=== PATIENT | male | born 1935 | race Two or more races ===

== ENCOUNTER 2016-10-12 14:07 | Emergency (ER) | payer MEDICARE ==
[2016-10-12 14:31] VITALS: BP 139/71
--- NOTE | 2016-10-12 16:06 | UC ---
Laceration HPI - HPI Summary HPI Summary: TIP OF RIGHT THUMB CUT ONE HOUR AGO WHILE USING A CUISINART. SMALL CUT BUT HAD BEEN UNABLE TO CONTROL BLEEDING. ON NO BLOOD THINNERS. CURENTLY NOT TAKING ASPIRIN - History Of Current Complaint Chief Complaint: UCLaceration Stated Complaint: THUMB LACERATION Time Seen by Provider: 10/12/16 14:11 Hx Obtained From: Patient Laceration Location: Finger - RIGHT THUMB Mechanism Of Injury: Sharp Trauma Onset/Duration: Sudden Onset, Lasting Hours Pain Intensity: 0 Pain Scale Used: 0-10 Numeric Related History: Dominant Hand Right - Allergies/Home Medications Allergies/Adverse Reactions: Allergies Allergy/AdvReac Type Severity Reaction Status Date / Time Hydrochlorothiazide Allergy Unknown Verified 10/07/16 11:39 Reaction Details Sulfamethoxazole Allergy See Comment Verified 10/07/16 11:39 w/Trimethoprim [From Bactrim] Home Medications: Home Medications Aspirin [Aspirin Adult Low Dose] 10/12/16 [History] PMH/Surg Hx/FS Hx/Imm Hx Previously Healthy: Yes Endocrine History Of: Denies: Diabetes, Thyroid Disease Cardiovascular History Of: Reports: Cardiac Disorders - high cholesterol, Hypertension - on medication Denies: Pacemaker/ICD, Congestive Heart Failure Respiratory History Of: Denies: COPD, Asthma GI/ History Of: Denies: Ulcer, Renal Disease - Surgical History Surgical History: Yes Surgery Procedure, Year, and Place: TEMPORAL ARTERY BIOPSY 06/21/[address] MURPHY. ELLIOT 05/18/02. ANKLE SURGERY 1984. 07/03/16 TUMOR REMOVED ([facility]) - Family History Known Family History: Positive: Cardiac Disease, Diabetes - Social History Lives: Alone Alcohol Use: Occasionally Substance Use Type: None Smoking Status (MU): Never Smoked Tobacco - Immunization History Most Recent Influenza Vaccination: 2014 Most Recent Tetanus Shot: unknown Most Recent Pneumonia Vaccination: unknown Review of Systems Constitutional: Negative Skin: Other - LACERATION RIGHT THUMB Eyes: Negative ENT: Negative Respiratory: Negative Cardiovascular: Negative Gastrointestinal: Negative Genitourinary: Negative Motor: Negative Neurovascular: Negative Musculoskeletal: Negative Neurological: Negative Psychological: Negative All Other Systems Reviewed And Are Negative: Yes Physical Exam Triage Information Reviewed: Yes Appearance: Well-Appearing, No Pain Distress, Well-Nourished Vital Signs: Initial Vital Signs Temp 97.8 F 10/12/16 14:23 Pulse 62 10/12/16 14:23 Resp 16 10/12/16 14:23 BP 139/71 10/12/16 14:23 Pulse Ox 98 10/12/16 14:23 Vital Signs Reviewed: Yes Eye Exam: Normal ENT Exam: Normal ENT: Positive: Normal ENT inspection, Hearing grossly normal, Pharynx normal, TMs normal Dental Exam: Normal Neck exam: Normal Neck: Positive: Supple, Nontender, No Lymphadenopathy Respiratory Exam: Normal Respiratory: Positive: Chest non-tender, Lungs clear, Normal breath sounds, No respiratory distress, No accessory muscle use Cardiovascular Exam: Normal Cardiovascular: Positive: RRR, No Murmur, Pulses Normal Abdominal Exam: Normal Abdomen Description: Positive: Nontender, No Organomegaly Musculoskeletal Exam: Normal Musculoskeletal: Positive: Strength Intact, ROM Intact Neurological Exam: Normal Neurological: Positive: Alert, Muscle Tone Normal Psychological Exam: Normal Psychological: Positive: Normal Response To Family Skin: Positive: Other - RIGHT THUMB LACERATION 0.8CM X 1MM X 3MM Laceration Repair - Laceration Repair 1 Description: Linear - RIGHT THUMB Laceration Size After Repair: Length (cm) - 0.8, Width (mm) - 1, Depth (mm) - 3 Modified For Repair: No Cleansing Completed Via Routine Prep: Yes Irrigation With Pressure Irrigation Device: Yes Closure Material: Skin Adhesive, SteriStrips Laceration Course/Dx - Differential Dx - Laceration/Wound Differental Diagnoses: Fracture, Joint Infection Provider Diagnoses: RIGHT THUMB LACERATION 0.8CM X 1MM X 3MM Discharge - Discharge Plan Condition: Stable Disposition: HOME Patient Education Materials: Laceration (ED), Skin Adhesive Care (ED), Steristrips (ED) Referrals: Chuy Nelson MD [Primary Care Provider] -
== END 2016-10-12 15:04 | disposition home or self-care (01) ==
LOC: UCEAST 14:07
DX: S61.011A Laceration without foreign body of right thumb without damage to nail, initial encounter (principal); W29.0XXA Contact with powered kitchen appliance, initial encounter; Y93.9 Activity, unspecified; Y92.9 Unspecified place or not applicable; Z88.2 Allergy status to sulfonamides; Z88.8 Allergy status to other drugs, medicaments and biological substances; I10 Essential (primary) hypertension
CPT/HCPCS: 99212; G0463

== ENCOUNTER → 2016-10-14 09:49 | Day surgery (SDC) | payer MEDICARE ==
[~2016-10-14 09:49] MED LIST: Buffered Lidocaine 1% SYR 3ML* 3 ML/SYR SYRINGE INTRADERM ONE; Lidocaine 2% PF * 5 ML VIAL ONE; Lidocaine 4% TOPICAL* 50 ML TOP.SOLN ONE; Ondansetron INJ* 2 MG/ML VIAL IV PRN; Oxymetazoline 0.05% NASAL SPR* 15 ML BTL ONE; Propofol* 10 MG/ML 20 ML BTL IV PUSH ONE; Sodium Citrate/Citric Acid* 15 ML UDC ONE; Sodium Citrate/Citric Acid* 15 ML UDC PO ONE; fentaNYL* 50 MCG/ML 2 ML VIAL (100 MCG VIAL) IV PRN; fentaNYL* 50 MCG/ML 2 ML VIAL (100 MCG VIAL) ONE
[2016-10-14 13:52] VITALS: BP 153/78
--- NOTE | 2016-10-15 19:40 | OP ---
DATE OF OPERATION: 10/14/16 [facility] DATE OF : 39 SURGEON: Alejandro Campbell MD SENIOR PATIENT ACCOUNT REPRESENTATIVE: None. ANESTHESIOLOGIST: Roosevelt Holt DO ANESTHESIA: General. PRE-OP DIAGNOSIS: Nasolacrimal duct obstruction, right side. POST-OP DIAGNOSIS: Nasolacrimal duct obstruction, right side. OPERATIVE PROCEDURE: Probe and irrigation of right nasolacrimal duct with placement of Hoover tube. COMPLICATIONS: None. BLOOD LOSS: Less than 5 cc. DESCRIPTION OF PROCEDURE: The patient was brought to the operating room and received general anesthesia with an LMA with no complications. Attention was directed to the right eye where the superior and inferior puncta were inspected. The superior puncta was found to be quite stenotic but was able to be opened with a punctal dilator. The inferior puncta was less stenotic and also was dilated with a punctal dilator. A #1-0 Luz's probe was passed through the superior puncta into the nose and removed. It was then passed through the inferior puncta into the nose and removed. A Hoover tube was placed in the superior puncta and the olive tip metal end was retrieved under the inferior turbinate. A nasal speculum was used to achieve good visualization and a freer elevator was used to lift the inferior turbinate adequately. The other end of the Hoover tube was placed through the inferior puncta and in similar fashion the metal olive tip was retrieved. Both metal tips were cut off and the silicone tube was tied securely into the nose. The position of the tube that had spanned from the superior to inferior puncta was appropriate without excess cheese-wiring or laxity. Afrin and 4% lidocaine had been placed on the pledget and put into the nose prior to the surgery. This was removed at the end of surgery. Suction into the nose was performed to remove a small amount of blood. Small amount of Maxitrol ointment was placed in the eye. The patient was awakened uneventfully and taken to the recovery room in stable condition with postoperative instructions and followup appointment given. [id number]/[facility] #: [id number] MTDD
== END | disposition home or self-care (01) ==
LOC: OREAST 09:49
PROVIDERS: ATTEND Ophthalmology
DX: H04.551 Acquired stenosis of right nasolacrimal duct (principal); I10 Essential (primary) hypertension; R91.1 Solitary pulmonary nodule
CPT/HCPCS: A9270-GY; J2704; J3010

== ENCOUNTER → 2017-07-15 12:11 | Day surgery (SDC) | payer MEDICARE ==
[~2017-07-15 12:11] MED LIST changes: +Acetaminophen TAB* 325 MG PO PRN; +Buffered Lidocaine 0.9% SYRIN* 5 ML/SYR SYRINGE INTRADERM ONE; -Buffered Lidocaine 1% SYR 3ML* 3 ML/SYR SYRINGE INTRADERM ONE; +Dexamethasone IV* 4 MG/ML 1 ML (4 MG) ONE; +EPHEDrine (Pressors)* 50 MG/ML VIAL ONE; +HYDROmorphone INJ* 1 MG/ML CARPUJECT SYRINGE IV PRN; -Lidocaine 4% TOPICAL* 50 ML TOP.SOLN ONE; +Midazolam* 1 MG/ML 2 ML VIAL (2 MG) ONE; -Ondansetron INJ* 2 MG/ML VIAL IV PRN; +Ondansetron INJ* 2 MG/ML VIAL ONE; -Oxymetazoline 0.05% NASAL SPR* 15 ML BTL ONE; +PROCHLORPERAZINE INJ 5 MG/ML 2 ML VIAL IV PRN; -Sodium Citrate/Citric Acid* 15 ML UDC ONE; -Sodium Citrate/Citric Acid* 15 ML UDC PO ONE; +Succinylcholine* 20 MG/ML 10 ML VIAL ONE; -fentaNYL* 50 MCG/ML 2 ML VIAL (100 MCG VIAL) IV PRN
[2017-07-15 16:16] VITALS: BP 121/78
--- NOTE | 2017-07-16 06:48 | PRO ---
BRONCHOSCOPY REPORT: DATE OF PROCEDURE: 07/15/17 PROCEDURE PERFORMED: Bronchoscopy with endobronchial ultrasound-guided fine needle aspiration of station 7 and R4 lymph nodes. PREPROCEDURAL DIAGNOSIS: Lymphadenopathy. ANESTHESIA: General anesthesia. ANESTHESIOLOGIST: Dr. Giron, refer to anesthesiologist's note for further details. PROCEDURE IN DETAIL: Informed consent was obtained from the patient prior to the procedure after all the risks and benefits were thoroughly explained. Appropriate time-out was performed and agreed by attending staff. The patient was placed supine on operating room table, Venodyne and Feliz Hugger placed. Flexible Olympus bronchoscope was then inserted through ET tube for airway inspection. All airways appeared to be patent, no endobronchial lesions were noted. No secretions were noted. Flexible bronchoscope was then removed and EBUS bronchoscope was inserted. Station 7 lymph node was accessed with 4 passes. Rapid on-site evaluation revealed adequate lymphatic tissue in all the passes, few atypical cells noted on 2 passes. Bronchoscope was then advanced into R4. Station R4 lymph was accessed with 4 passes. First two passes were bloody, minimal lymphoid tissue was noted. Pass 3 and 4 had good lymphatic tissue, however, no abnormal cells were noted. Rest of the specimen was placed in CytoLyt. Patient was extubated and was seen in Recovery in optimal condition. [id number]/[facility] #: [id number] MTDD
== END | disposition home or self-care (01) ==
LOC: OR 12:11
PROVIDERS: ATTEND Internal Medicine
DX: R59.0 Localized enlarged lymph nodes (principal); C49.A2 Gastrointestinal stromal tumor of stomach; I10 Essential (primary) hypertension; G62.9 Polyneuropathy, unspecified
CPT/HCPCS: 88172; 88173; 88177; 88305; J0330; J1100; J2250; J2405; J2704; J3010

== ENCOUNTER 2018-02-09 14:37 | Emergency (ER) | payer MEDICARE ==
[2018-02-09 14:49] VITALS: BP 151/82
--- NOTE | 2018-02-09 15:02 | ED ---
Upper Extremity Pain - HPI Summary HPI Summary: 82 yr old male with the complaint of left 5th finger pain after closing it in a wheelchair. 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 He states his finger hurts a bit, and that he has some cuts over the PIP knuckle. He states his Tetanus shot is up to date. - History of Current Complaint Chief Complaint: UCUpperExtremity Stated Complaint: LFT PINKY FIGER INJURY Time Seen by Provider: 02/09/18 14:43 - Allergies/Home Medications Allergies/Adverse Reactions: Allergies Allergy/AdvReac Type Severity Reaction Status Date / Time hydrochlorothiazide Allergy Unknown Verified 02/09/18 14:54 Reaction Details sulfamethoxazole AdvReac See Comment Verified 02/09/18 14:54 [From Bactrim] trimethoprim [From Bactrim] AdvReac See Comment Verified 02/09/18 14:54 PMH/Surg Hx/FS Hx/Imm Hx Endocrine/Hematology History: Reports: Hx Anemia - 5 yrs ago, ok now Denies: Hx Diabetes, Hx Thyroid Disease Cardiovascular History: Reports: Hx Hypertension - on medication Denies: Hx Congestive Heart Failure, Hx Pacemaker/ICD, Other Cardiovascular Problems/Disorders Respiratory History: Reports: Other Respiratory Problems/Disorders - pt gets congested at night Denies: Hx Asthma, Hx Chronic Obstructive Pulmonary Disease (COPD) GI History: Reports: Hx Jaundice - 40 yrs ago Denies: Hx Ulcer, Other GI Disorders History: Reports: Other Problems/Disorders - HX OF TURP Denies: Hx Dialysis, Hx Renal Disease Musculoskeletal History: Reports: Hx Back Problems, Hx Bursitis - hip, Other Musculoskeletal History - thin cartilage in right knee; pain in left hip Sensory History: Reports: Hx Contacts or Glasses - glasses Denies: Hx Hearing Aid Opthamlomology History: Reports: Hx Contacts or Glasses - glasses Neurological History: Denies: Other Neuro Impairments/Disorders Psychiatric History: Denies: Hx Panic Disorder - Cancer History Cancer Type, Location and Year: [facility] - Surgical History Surgery Procedure, Year, and Place: TEMPORAL ARTERY BIOPSY 06/21/[address] MURPHY. TURP 05/18/02. ANKLE SURGERY 1984. 07/03/16 TUMOR REMOVED ([facility]). eye surgery 08/2016, tear duct Hx Anesthesia Reactions: No Infectious Disease History: No Infectious Disease History: Reports: History Other Infectious Disease - hs1 Denies: Hx Clostridium Difficile, Hx Hepatitis, Hx Human Immunodeficiency Virus (HIV), Hx of Known/Suspected MRSA, Hx Shingles, Hx Tuberculosis, Hx Known/ Suspected VRE, Hx Known/Suspected VRSA, Traveled Outside the [place] in Last 30 Days - Family History Known Family History: Positive: Cardiac Disease, Diabetes - Social History Alcohol Use: Occasionally Alcohol Amount: 1 per week Substance Use Type: Reports: None Smoking Status (MU): Never Smoked Tobacco Review of Systems Positive: Other - left little finger injury All Other Systems Reviewed And Are Negative: Yes Physical Exam Triage Information Reviewed: Yes Vital Signs On Initial Exam: Initial Vitals Temp Pulse Resp BP Pulse Ox 98.1 F 52 16 151/82 100 02/09/18 14:44 02/09/18 14:44 02/09/18 14:44 02/09/18 14:44 02/09/18 14:44 Vital Signs Reviewed: Yes Appearance: Positive: Well-Appearing, No Pain Distress Skin: Positive: Warm Head/Face: Positive: Normal Head/Face Inspection ENT: Positive: Normal ENT inspection Respiratory/Lung Sounds: Positive: Other - normal effort Abdomen Description: Negative: Distended Musculoskeletal: Positive: Other - left 5th hand digit reveals no gross deformity. He does have a 1.5. cm superficial laceration over the medial PIP area. No flexor or extensor tendon injury. He has decreased digital nerve sensation in the medial digital nerve left 5th digit without two point discrimination in this distribution. Neurological: Positive: Alert, Oriented to Person Place, Time Psychiatric: Positive: Normal - [place] Coma Scale Best Eye Response: 4 - Spontaneous Best Motor Response: 6 - Obeys Commands Best Verbal Response: 5 - Oriented Coma Scale Total: 15 Diagnostics - Vital Signs Vital Signs Temp Pulse Resp BP Pulse Ox 02/09/18 14:44 98.1 F 52 16 151/82 100 - Laboratory Lab Statement: Any lab studies that have been ordered have been reviewed, and results considered in the medical decision making process. - Radiology left 5th hand digit Xray Interpretation: No Acute Changes Radiology Interpretation Completed By: Radiologist Course/Dx - Course Course Of Treatment: 82 yr old with digital nerve disfunction/injury after pinch hand in wheelchair with overlying well approximated superficial laceration same side of finger. Xray negative. Wound irrigated by nursing under pressure. No FB seen or palpated. antibiotic ointment and dressing applied and a foam metal splint applied by nursing. Refer to hand specialist in [facility] for evaluation of digit. 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
--- NOTE | 2018-02-09 15:20 | RAD ---
HISTORY: trauma, cuts, closed in wheel chair COMPARISONS: None VIEWS: 3, Frontal, lateral, and oblique views of the fifth digit of the right hand FINDINGS: BONE DENSITY: Normal. BONES: There is no displaced fracture. 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 SOFT TISSUES: Unremarkable. OTHER FINDINGS: None. IMPRESSION: NO ACUTE OSSEOUS INJURY. IF SYMPTOMS PERSIST, RECOMMEND REPEAT IMAGING.
== END 2018-02-09 15:46 | disposition home or self-care (01) ==
LOC: UCCORT 14:37
DX: S64.497A Injury of digital nerve of left little finger, initial encounter (principal); S61.217A Laceration without foreign body of left little finger without damage to nail, initial encounter; I10 Essential (primary) hypertension; Z88.8 Allergy status to other drugs, medicaments and biological substances; Z88.2 Allergy status to sulfonamides; Z88.1 Allergy status to other antibiotic agents; W23.0XXA Caught, crushed, jammed, or pinched between moving objects, initial encounter; Y93.89 Activity, other specified; Y92.89 Other specified places as the place of occurrence of the external cause
CPT/HCPCS: 73140; 99213; G0463

== ENCOUNTER 2021-04-17 15:34 | Inpatient (IN) ==
[2021-04-17 17:42] LABS: ABS Eosinophils 0.2 10^3/ul (0-0.6); ABS Lymphocytes 1.9 10^3/ul (1.0-4.8); ABS Monocytes 0.5 10^3/ul (0-0.8); ABS Neutrophils 5.7 10^3/ul (1.5-7.7); Eosinophil % 2.9 %; Hematocrit 39 % (42-52); Hemoglobin 13.8 g/dL (14.0-18.0); Lymphocyte % 22.3 %; Mean Corpuscular HGB Conc 36 g/dL (31-36); Mean Corpuscular Hemoglobin 29 pg (27-31); Mean Corpuscular Volume 82 fL (80-94); Mean Platelet Volume 8.4 fL (7.4-10.4); Platelet Count 217 10^3/uL (150-450); Red Blood Count 4.77 10^6 /uL (4.18-5.48); Red Cell Distribution Width 13 % (10-15); White Blood Count 8.3 10^3/uL (3.5-10.8)
[2021-04-17 17:59] LABS: Albumin 4.2 g/dL (3.2-5.2); Albumin/Globulin Ratio 1.6 (1-3); C Reactive Protein 12.12 mg/L (<8.01); EGFR African American 74.1 (>60); EGFR Non-African American 61.2 (>60); Globulin 2.6 g/dL (2-4); Total Bilirubin 0.6 mg/dL (0.2-1.0); Total Protein 6.8 g/dL (6.4-8.9)
[2021-04-17 18:00] LABS: Activated Partial Thrombo Time 39.3 seconds (26.0-38.0); INR 1.03 (0.86-1.15); Troponin I 0.01 ng/mL (<0.03)
[2021-04-17] MEDS ORDERED: Metoclopramide 5 MG/ML VIAL (10 mg) IV ONE (18:15)
[2021-04-17] MEDS ORDERED: diPHENhydraMINE IV 50 MG/ML 1 ml VIAL (BENADRYL) IV ONE (18:16)
[2021-04-17 18:17] LABS: Potassium 2.7 mmol/L (3.5-5.0)
[2021-04-17] MEDS ORDERED: Potassium Chlor 20 meq TAB.ER PO ONE (18:18)
[2021-04-17] MEDS ORDERED: KCL 10 MEQ/50 ML IVPREMIX 10 MEQ/50 ML BAG IV ONE (18:19)
[2021-04-17] MEDS ORDERED: Magnesium Sulfate IV 1GM/100ML 1 GM/100 ML BAG IV ONE (18:27)
[2021-04-17 19:04] LABS: Magnesium 1.7 mg/dL (1.9-2.7)
[2021-04-17] MEDS ORDERED: Acetaminophen IV 1 GM/100ML 100 ML IV ONE (20:30)
[2021-04-17 21:41] LABS: Urine Creatinine Concentration 143.75 mg/dL
[2021-04-17 21:55] LABS: Urine Appearance Clear; Urine Bilirubin Negative (Negative); Urine Blood Negative (Negative); Urine Color Yellow; Urine Glucose Negative (Negative); Urine Ketones Negative (Negative); Urine Nitrite Negative (Negative); Urine Protein Negative (Negative); Urine Specific Gravity 1.018 (1.002-1.030); Urine Urobilinogen Negative (Negative)
[2021-04-17] MEDS ORDERED: NS 0.9% 1000 ml BAG 1,000 ML IV ONE (22:08)
[2021-04-17] MEDS ORDERED: Potassium Chloride LIQUID 20 MEQ/15 ML LIQUID PO ONE (22:49)
[2021-04-17] MEDS: Ondansetron 4 mg VIAL 2 MG/ML 2 ml VIAL IV PRN (22:53)
[2021-04-17] MEDS: Enoxaparin 40 MG/0.4 ML SYR SUBCUT SCH (23:04)
[2021-04-18 02:37] LABS: Calcium 8.1 mg/dL (8.6-10.3); EGFR African American 83.2 (>60); EGFR Non-African American 68.8 (>60); Potassium 3.5 mmol/L (3.5-5.0)
[2021-04-18 02:51] LABS: Magnesium 1.9 mg/dL (1.9-2.7)
[2021-04-18] MEDS ORDERED: Potassium Chloride LIQUID 20 MEQ/15 ML LIQUID PO ONE (06:29)
[2021-04-18 06:31] LABS: Hematocrit 36 % (42-52); Hemoglobin 12.9 g/dL (14.0-18.0); Mean Corpuscular HGB Conc 36 g/dL (31-36); Mean Corpuscular Hemoglobin 29 pg (27-31); Mean Corpuscular Volume 82 fL (80-94); Mean Platelet Volume 8.7 fL (7.4-10.4); Platelet Count 201 10^3/uL (150-450); Red Blood Count 4.41 10^6 /uL (4.18-5.48); Red Cell Distribution Width 13 % (10-15)
[2021-04-18 06:52] LABS: C Reactive Protein 20.61 mg/L (<8.01); Magnesium 1.8 mg/dL (1.9-2.7)
[2021-04-18 07:25] LABS: EGFR African American 93.7 (>60); EGFR Non-African American 77.4 (>60); Potassium 3.5 mmol/L (3.5-5.0)
[2021-04-18] MEDS ORDERED: Magnesium Sulfate IV 3 GM in NS 0.9% 100 ml BAG 100 ML IVPB ONE (07:32)
[2021-04-18 11:52] LABS: Influenza A Molecular Negative (Negative); Influenza B Molecular Negative (Negative)
[2021-04-18 14:41] LABS: Calcium 8.1 mg/dL (8.6-10.3); EGFR African American 89.2 (>60); EGFR Non-African American 73.7 (>60); Potassium 3.5 mmol/L (3.5-5.0)
[2021-04-18] MEDS ORDERED: Gadoteridol (CONTRAST) 279.3 MG/ML 10 ML IV ONE (20:26)
[2021-04-18] MEDS: Enoxaparin 40 MG/0.4 ML SYR SUBCUT SCH (23:08)
[2021-04-18] MEDS: Ondansetron 4 mg VIAL 2 MG/ML 2 ml VIAL IV PRN (23:37)
[2021-04-19 06:12] LABS: ABS Eosinophils 0.2 10^3/ul (0-0.6); ABS Lymphocytes 1.4 10^3/ul (1.0-4.8); ABS Monocytes 0.4 10^3/ul (0-0.8); ABS Neutrophils 3.3 10^3/ul (1.5-7.7); Eosinophil % 3.3 %; Hematocrit 36 % (42-52); Hemoglobin 12.9 g/dL (14.0-18.0); Lymphocyte % 25.4 %; Mean Corpuscular HGB Conc 36 g/dL (31-36); Mean Corpuscular Hemoglobin 29 pg (27-31); Mean Corpuscular Volume 82 fL (80-94); Mean Platelet Volume 8.7 fL (7.4-10.4); Platelet Count 187 10^3/uL (150-450); Red Blood Count 4.42 10^6 /uL (4.18-5.48); Red Cell Distribution Width 14 % (10-15); White Blood Count 5.3 10^3/uL (3.5-10.8)
[2021-04-19 06:31] LABS: Albumin 3.7 g/dL (3.2-5.2); Albumin/Globulin Ratio 1.5 (1-3); C Reactive Protein 60.99 mg/L (<8.01); Calcium 8.2 mg/dL (8.6-10.3); EGFR African American 80.5 (>60); EGFR Non-African American 66.6 (>60); Globulin 2.4 g/dL (2-4); Phosphorus 2.8 mg/dL (2.5-5.0); Potassium 3.9 mmol/L (3.5-5.0); Total Bilirubin 0.7 mg/dL (0.2-1.0); Total Protein 6.1 g/dL (6.4-8.9)
[2021-04-19 17:33] LABS: Erythrocyte Sed Rate 26 mm/Hr (0-19)
[2021-04-19 21:09] LABS: Body Fluid Source Cerebral Spinal
[2021-04-19 21:24] LABS: CSF Glucose 66 mg/dL (40-70)
[2021-04-19 21:45] LABS: Body Fluid Appearance Clear; Body Fluid Color Colorless; CSF Tube # 4
[2021-04-19 21:46] LABS: Body Fluid WBC 0 /mcL
[2021-04-19 23:35] LABS: Body Fluid Mono 5 %
[2021-04-19 23:36] LABS: Body Fluid Total Cells Counted 19
[2021-04-20 04:55] LABS: ABS Eosinophils 0.1 10^3/ul (0-0.6); ABS Lymphocytes 1.2 10^3/ul (1.0-4.8); ABS Monocytes 0.5 10^3/ul (0-0.8); ABS Neutrophils 2.6 10^3/ul (1.5-7.7); Hematocrit 35 % (42-52); Hemoglobin 12.3 g/dL (14.0-18.0); Lymphocyte % 27.4 %; Mean Corpuscular HGB Conc 35 g/dL (31-36); Mean Corpuscular Hemoglobin 29 pg (27-31); Mean Corpuscular Volume 82 fL (80-94); Mean Platelet Volume 8.6 fL (7.4-10.4); Nucleated Red Blood Cells % 0.2; Platelet Count 175 10^3/uL (150-450); Red Blood Count 4.24 10^6 /uL (4.18-5.48); Red Cell Distribution Width 13 % (10-15); White Blood Count 4.5 10^3/uL (3.5-10.8)
[2021-04-20 05:14] LABS: Calcium 8.3 mg/dL (8.6-10.3); EGFR African American 67.2 (>60); EGFR Non-African American 55.5 (>60); Potassium 3.7 mmol/L (3.5-5.0)
[2021-04-20 05:32] LABS: Prolactin 20.3 ng/mL (1.0-20.0)
[2021-04-20 10:27] LABS: Anaplasma phagocytophilum Negative (Negative); B. miyamotoi PCR, B Negative (Negative); Babesia divergens/MO-1 Negative (Negative); Babesia ducani Negative (Negative); Ehrlichia chaffeensis Negative (Negative); Ehrlichia ewingii/canis Negative (Negative); Ehrlichia muris eauclairensis Negative (Negative)
[2021-04-20] MEDS ORDERED: Polyethylene Glycol 3350 17 GM PACKET PO PRN (18:55)
[2021-04-21 05:13] LABS: ABS Eosinophils 0.2 10^3/ul (0-0.6); ABS Lymphocytes 1.1 10^3/ul (1.0-4.8); ABS Monocytes 0.4 10^3/ul (0-0.8); ABS Neutrophils 1.9 10^3/ul (1.5-7.7); Eosinophil % 4.4 %; Hematocrit 33 % (42-52); Hemoglobin 12.2 g/dL (14.0-18.0); Lymphocyte % 30.2 %; Mean Corpuscular HGB Conc 37 g/dL (31-36); Mean Corpuscular Hemoglobin 29 pg (27-31); Mean Corpuscular Volume 80 fL (80-94); Mean Platelet Volume 8.4 fL (7.4-10.4); Nucleated Red Blood Cells % 0.2; Platelet Count 157 10^3/uL (150-450); Red Blood Count 4.16 10^6 /uL (4.18-5.48); Red Cell Distribution Width 14 % (10-15); White Blood Count 3.6 10^3/uL (3.5-10.8)
[2021-04-21 05:32] LABS: Calcium 8.4 mg/dL (8.6-10.3); EGFR African American 73.3 (>60); EGFR Non-African American 60.6 (>60); Potassium 3.6 mmol/L (3.5-5.0)
[2021-04-21] MEDS ORDERED: Senna TAB 8.6 mg TAB PO PRN (10:47)
[2021-04-21 15:10] LABS: Testosterone 26.96 ng/dL (240-950)
[2021-04-21 15:47] LABS: Follicle Stimulating Hormone 1.9 mIU/mL (1-20)
[2021-04-21] MEDS: Ondansetron 4 mg VIAL 2 MG/ML 2 ml VIAL IV PRN (20:47)
[2021-04-22] MEDS ORDERED: Cosyntropin 0.25 MG VIAL IV ONE ×2 (07:00)
[2021-04-22 07:05] LABS: Calcium 8.4 mg/dL (8.6-10.3); EGFR African American 84.2 (>60); EGFR Non-African American 69.6 (>60); Potassium 3.4 mmol/L (3.5-5.0)
[2021-04-22 13:46] LABS: Growth Hormone, Serum 0.44 ng/mL
[2021-04-22 16:30] LABS: HSV 1 PCR, CSF Negative (Negative); HSV 2 PCR, CSF Negative (Negative)
[2021-04-22 17:44] LABS: Free T3 2.4 pg/mL (2.5-3.9)
[2021-04-22 17:45] LABS: Free T4 0.61 ng/dL (0.61-1.12)
[2021-04-23 06:38] LABS: Albumin 3.7 g/dL (3.2-5.2); Albumin/Globulin Ratio 1.6 (1-3); Calcium 8.6 mg/dL (8.6-10.3); EGFR African American 76.4 (>60); EGFR Non-African American 63.1 (>60); Globulin 2.3 g/dL (2-4); Potassium 3.8 mmol/L (3.5-5.0); Total Bilirubin 0.6 mg/dL (0.2-1.0)
[2021-04-23] MEDS ORDERED: Fluticasone NASAL SPRAY 50MCG 16 gm SPRAY BTL BOTH NARES PRN (11:14)
[2021-04-23 11:32] VITALS: BP 126/46
[2021-04-23] MEDS ORDERED: Saline NASAL SPRAY 0.65% BTL BOTH NARES PRN (12:00)
[2021-04-23 14:09] LABS: JC Virus PCR Result Negative (Negative)
[2021-04-24] MEDS ORDERED: Fluticasone NASAL SPRAY 50MCG 16 gm SPRAY BTL BOTH NARES SCH (09:00)
[2021-04-24 09:54] LABS: IGF1 Z-score 1.04 SD
[2021-04-24 15:36] LABS: CSF West Nile Virus IgG Ab Negative (Negative); CSF West Nile Virus IgM Ab Negative (Negative)
== END 2021-04-23 16:15 | disposition home or self-care (01) | DRG 644 ==
LOC: ED 15:34 → MED 22:02 → SUATTDRO 22:02
PROVIDERS: ADMIT Student in an Organized Health Care Education/Training Program; ATTEND Internal Medicine